=== PATIENT | female | born 1990 | race Caucasian/White ===

== ENCOUNTER 2019-07-30 08:27 | Emergency (ER) | payer SELFPAY ==
[~2019-07-30] VITALS: Ht 154.9 cm; Wt 47.6 kg
[2019-07-30 08:32] VITALS: BP 114/81
--- NOTE | 2019-07-30 08:35 | NUR ---
ED Nurse Note: Patient walked into ED from home c/o syncopal episode this morning. patient was in the restroom trying to brush her teeth and on the phoen with her dad, passed out for 4 minutes, found herself on the ground. patient reports lower abdominal pain and nausea. patient denies vomiting or diarrhea. patient denies any injury. patient is alert awake x4 ambulatory steady gait, breathing unlabored and even, speaking in full sentences. patient placed on a ekg monitor tech. EKG being done at bedside.
--- NOTE | 2019-07-30 08:50 | Emergency Room Report ---
History of Present Illness General Chief Complaint: Syncope Source: Patient Present Illness HPI Patient is a 29-year-old female denies any significant past medical history who presents to the ER complaining of abdominal pain. Patient complains of sharp crampy lower abdominal pain that was extremely severe before she came in. She states that the pain was so severe that she momentarily passed out. She denies having any chest pain or shortness of breath. She denies any focal weakness. She denies any family history of sudden . She denies any history of syncope. She denies being around anybody who is sick or recent travel. Patient denies any dysuria, hematuria, diarrhea or constipation. Patient complains of nausea but states that she has not vomited. Patient states that she does not want any pain medication at this time. Allergies: Coded Allergies: AMOXICILLIN (Verified Allergy, Unknown, 07/30/19) COVID-19 Screening Contact w/high risk pt: No Recent Travel to affected area: No Experienced COVID-19 symptoms?: No COVID-19 Testing performed LINUX SUPPORT ENGINEER: No Patient History Past Medical History: none Past Surgical History: none Social History: Reports: smoking; Denies: alcohol use, drug use Last Menstrual Period: 07/05/19 Nursing Documentation-[facility] Past Medical History: No Stated History Review of Systems All Other Systems: negative except mentioned in HPI Physical Exam Vital Signs Date Time Temp Pulse Resp B/P (MAP) Pulse Ox O2 Delivery O2 Flow Rate FiO2 07/30/19 08:31 98.6 92 19 114/81 (92) 99 Room Air Sp02 EP Interpretation: reviewed, normal General Appearance: no apparent distress, alert, GCS 15, non-toxic Head: normocephalic, atraumatic Eyes: bilateral eye normal inspection, bilateral eye PERRL ENT: hearing grossly normal, normal pharynx, no angioedema, normal voice Neck: full range of motion, supple/symm/no masses Respiratory: chest non-tender, lungs clear, normal breath sounds, speaking full sentences Cardiovascular #1: regular rate, rhythm, no edema Cardiovascular #2: 2+ carotid (R), 2+ carotid (L), 2+ radial (R), 2+ radial (L) , 2+ dorsalis pedis (R), 2+ dorsalis pedis (L) Gastrointestinal: normal bowel sounds, soft, non-distended, no guarding, no rebound, other - LLQ, RLQ and suprapubic ttp with no guarding or rebound Rectal: deferred Genitourinary: normal inspection, no CVA tenderness Musculoskeletal: back normal, normal range of motion, gait/station normal, non- tender Neurologic: alert, motor strength/tone normal, oriented x3, sensory intact, responsive, speech normal Psychiatric: judgement/insight normal, memory normal, mood/affect normal, no suicidal/homicidal ideation Skin: no rash Lymphatic: no adenopathy Medical Decision Making Diagnostic Impression: Primary Impression: Ovarian cyst Additional Impression: Syncope ER Course Patient's labs demonstrate no acute abnormalities. Patient has no elevated white blood cell count. Her CT demonstrates no acute intra-abdominal pathology. Ultrasound demonstrates ovarian cysts with a little bit of free fluid. Likely hemorrhagic cyst. Patient's pain is under control. She is declining any pain medication. She has no guarding or rebound tenderness. Patient given a prescription for Motrin as needed for pain. I suspect the syncope that the patient is presenting with is non-emergent in etiology. Regarding the history, the patient is <65yo, no history of structural heart disease or CAD, no family history of sudden , has no shortness of breath, and syncope is nonexertional. On patients physical exam patient is not hypotensive, has no findings of CHF, no significant cardiac murmur suggestive of valvular heart disease or cardiac outflow obstruction. Patient reports no history of seizure or head trauma. EKG showed no evidence of concerning findings of QT prolongation, Brugadas syndrome, or significant ST changes suggestive of acute ischemia, dysrhythmias, or significant conduction abnormalities. On laboratory evaluation, blood sugar was normal and patient is not anemic. The patient was counseled that, though unlikely, the possibility of an emergent cause of syncope may still be present and that the patient should return immediately if symptoms persists or worsen. I believe the patient is stable for discharge to follow-up with their PMD for further workup. EKG Diagnostic Results EKG Time: 08:40 EP Interpretation: MD Natacha Rate: normal Rhythm: NSR ST Segments: no acute changes ASA given to the pt in ED: No Rhythm Strip Diag. Results Rhythm Strip Time: 08:49 EP Interpretation: yes - MD Natacha Rate: 90 Rhythm: NSR, no PVC's, no ectopy Last Vital Signs Date Time Temp Pulse Resp B/P (MAP) Pulse Ox O2 Delivery O2 Flow Rate FiO2 07/30/19 08:32 98.6 91 19 114/81 99 Room Air Disposition: HOME, SELF-CARE Condition: Stable Scripts Ibuprofen* (MOTRIN*) 600 Mg Tablet 600 MG ORAL FOUR TIMES A DAY, #30 TAB 0 Refills Prov: Jacquelin Manzano M.D. 07/30/19 Referrals: NOT CHOSEN [facility]/MD,REFERRING (PCP) Additional Instructions: The patient was provided with discharge instructions, notified to follow-up with a primary care doctor and or specialist in the next 24-48 hours, and to return to the ED if they have worsening of their symptoms. Please note that this report is being documented using [employer] technology. This can lead to erroneous entry secondary to incorrect interpretation by the dictating instrument. Jacquelin Manzano M.D. July 30, 2019 08:50
[2019-07-30 08:58] VITALS: BP 107/65
[2019-07-30 09:06] LABS: APPEARANCE,URINE CLEAR; BASOPHILS % (AUTO) 0.5 % (0.0-2.0); BILIRUBIN, URINE NEGATIVE (NEGATIVE); COLOR,URINE PALE YELLOW; EOSINOPHILS % (AUTO) 1.7 % (0.0-3.0); GLUCOSE, URINE (UA) NEGATIVE (NEGATIVE); HEMATOCRIT 38.1 % (37.0-47.0); HEMOGLOBIN 13.7 G/DL (12.0-16.0); KETONES,URINE NEGATIVE (NEGATIVE); LEUKOCYTE ESTERASE ,URINE 1+ (NEGATIVE); LYMPHOCYTES % (AUTO) 32.8 % (20.0-45.0); MEAN CORPUSCULAR VOLUME 83 FL (80-99); MONOCYTES % (AUTO) 6.5 % (1.0-10.0); NEUTROPHILS % (AUTO) 58.5 % (45.0-75.0); NITRITE,URINE NEGATIVE (NEGATIVE); PH,URINE 5 (4.5-8.0); PLATELET COUNT 238 K/UL (150-450); PROTEIN,URINE NEGATIVE (NEGATIVE); RED BLOOD COUNT 4.59 M/UL (4.20-5.40); RED CELL DISTRIBUTION WIDTH 10.1 % (11.6-14.8); UROBILINOGEN,URINE NORMAL MG/DL (0.0-1.0); WHITE BLOOD COUNT 6.5 K/UL (4.8-10.8)
[2019-07-30 09:21] LABS: ANION GAP 10 mmol/L (5-15); BLOOD UREA NITROGEN 13 mg/dL (7-18); CALCIUM 8.6 MG/DL (8.5-10.1); CARBON DIOXIDE 26 MMOL/L (21-32); CHLORIDE 106 MMOL/L (98-107); CREATININE 0.8 MG/DL (0.55-1.30); POTASSIUM 3.7 MMOL/L (3.5-5.1); SODIUM 142 MMOL/L (136-145)
[2019-07-30 09:25] LABS: ALANINE AMINOTRANSFERASE 17 U/L (12-78); ALBUMIN/GLOBULIN RATIO 1.1 (1.0-2.7); ALKALINE PHOSPHATASE 35 U/L (46-116); ASPARTATE AMINO TRANSFERASE 13 U/L (15-37); BILIRUBIN,TOTAL 0.6 MG/DL (0.2-1.0)
--- NOTE | 2019-07-30 09:29 | NUR ---
ED Nurse Note: PT. WENT DOWN TO CT
--- NOTE | 2019-07-30 10:01 | Diagnostic Imaging Report ---
EXAM: CT CT Abdomen Pelvis WO Contrast INDICATION: Reason For Exam: ABD PAIN. COMPARISON: None TECHNIQUE: Axial images were obtained through the abdomen pelvis without intravenous contrast. Sagittal and coronal reformats are generated. All CT scans at this facility are performed using dose modulation techniques as appropriate to a performed exam including the following: automated exposure control with adjustment of the mA and/or kV according to patient size. RADIATION DOSE: CTDIvol: 3.6 mGy DLP: 173.6 mGy-cm Dose information generated by the CT scanner is available in PACS. FINDINGS: The lung bases are clear. The liver and spleen are homogeneous. Gallbladder is without sludge or stone and there is no wall thickening. The pancreas is unremarkable. Adrenals are normal in morphology. The kidneys are normal in size, shape and axis. Small bowel loops are nondistended. Increased stool lucencies noted throughout the colon. The appendix is normal in caliber and contains a tiny appendicolith. No inflammation is noted presently. Uterus is midline. There is some free fluid in the cul-de-sac perhaps physiologic. Multiple phleboliths noted in the pelvis. No pathologic adenopathy demonstrated. Urinary bladder appears unremarkable. There is no suspicious superficial soft tissue or osseous abnormality. IMPRESSION: INCREASED LUCENCY THROUGHOUT THE COLON SUGGESTIVE OF CONSTIPATION. APPENDIX CONTAINS A TINY APPENDICOLITH BUT IS NONDISTENDED AND NO INFLAMMATION SEEN PRESENTLY. SOME FREE FLUID IN THE PELVIS LIKELY PHYSIOLOGIC.
--- NOTE | 2019-07-30 10:13 | NUR ---
ED Nurse Note: Yasmin U/S tech called for U/S
--- NOTE | 2019-07-30 10:23 | NUR ---
ED Nurse Note: U/S at bedside.
[2019-07-30] MEDS ORDERED: IBUPROFEN600 M1 ORAL (11:03)
[2019-07-30 11:17] VITALS: BP 107/65
--- NOTE | 2019-07-30 11:17 | NUR ---
ER DISCHARGE NOTE: Patient is cleared to be discharged per ERMD DR DIEGO, pt is aox4, on room air, with stable vital signs. pt was given dc and prescription instructions, pt was able to verbalize understanding, pt id band and iv site removed without complications. pt is able to ambulate with steady gait. pt took all belongings.
--- NOTE | 2019-07-30 11:31 | Diagnostic Imaging Report ---
EXAM: US Pelvic Transabdominal CLINICAL HISTORY: Pelvic pain. COMPARISON: None TECHNIQUE: Ultrasound examination of the pelvis includes grayscale images, and color and spectral doppler analysis. FINDINGS: Transabdominal and transvaginal technique utilized. The uterus measures 8.6 x 4.7 x 4 cm and appears retroverted. Myometrium is homogeneous. Endometrial stripe is 9 mm. Right ovary measures 4.5 x 2.3 x 4.0 cm. Left ovary measures 2.9 x 1.9 x 3.3 cm. There appears to be a complex cyst in the right ovary with internal echoes perhaps a hemorrhagic cyst. Normal vascular flow seen bilaterally. There are multiple nabothian cysts. Small amount of free fluid noted. IMPRESSION: COMPLEX CYST IN THE RIGHT OVARY WITH INTERNAL ECHOES PERHAPS A HEMORRHAGIC CYST. RECOMMEND FOLLOW-UP TO COMPLETE RESOLUTION. FREE FLUID IN THE PELVIS LIKELY PHYSIOLOGIC. NABOTHIAN CYSTS.
== END 2019-07-30 11:17 | disposition home or self-care (01) ==
LOC: EMR 08:38
DX: N83.201 Unspecified ovarian cyst, right side (principal); R55 Syncope and collapse; Z88.1 Allergy status to other antibiotic agents
CPT/HCPCS: 36415; 74176; 76830; 76856; 80053; 80307; 81003; 81025; 83690; 83735; 84484; 85025; 93005; 96361; 96374; 99284; J2405; J7030